=== PATIENT | male | born 1985 | race Caucasian/White ===

== ENCOUNTER 2016-08-28 06:33 | Day surgery (SDC) | payer BC ==
[~2016-08-28] VITALS: Ht 185.4 cm; Wt 95.0 kg
[~2016-08-28 06:33] MED LIST: CEFTIN250 MG PO; CLARITIN,ALAVAR10 MG PO; FLONASE16 G1 BOTH NARES; SINUS RINSE PR1 EACH BOTH NARES; TYLENOL WITH C1 EACH PO
[2016-08-28 07:00] VITALS: BP 131/86
[2016-08-28 13:10] VITALS: BP 123/82
[2016-08-28 14:22] VITALS: BP 127/78
[2016-08-28 14:35] VITALS: BP 127/78
== END 2016-08-28 14:35 | disposition home or self-care (01) ==
LOC: SDC 06:33
DX: J34.2 Deviated nasal septum (principal); J31.0 Chronic rhinitis; F17.200 Nicotine dependence, unspecified, uncomplicated; Z91.030 Bee allergy status
CPT/HCPCS: J0131; J0690; J1100; J1885; J2250; J2405; J2765; J3010; J3301; J7050

== ENCOUNTER 2017-07-11 20:12 | Emergency (ER) | payer BC ==
[~2017-07-11] VITALS: Ht 198.1 cm; Wt 95.4 kg
[2017-07-11 21:22] LABS: HEMATOCRIT 46.2 % (38.0-50.0); HEMOGLOBIN 16.3 G/DL (12.5-16.6); MCH 32.2 PG (29.0-34.0); MCHC 35.3 G/DL (30.0-36.0); MCV 91.3 FL (86-99); PLATELET COUNT 245 K/uL (156-360); RBC DIS.WIDTH-CV 12.4 % (11.8-14.6); RBC DIS.WIDTH-SD 41.1 % (39-53); RED BLOOD COUNT 5.06 M/uL (4.00-5.50)
[2017-07-11 21:32] LABS: ALBUMIN 4.9 g/dL (3.2-4.8)
[2017-07-11 21:33] LABS: CHLORIDE 106 mEq/L (99-109); POTASSIUM 3.7 mEq/L (3.7-5.4); SODIUM 142 mEq/L (136-147)
[2017-07-11 21:35] LABS: GLUCOSE 85 mg/dL (70-99)
[2017-07-11 21:37] LABS: TOTAL BILIRUBIN 0.5 mg/dL (0.0-1.0)
[2017-07-11 21:38] LABS: ALKALINE PHOSPHATASE 85 IU/L (3-129); SERUM ETHYL ALCOHOL 301 mg/dL
[2017-07-11 21:39] LABS: CREATININE 1.1 mg/dL (0.6-1.3); GFR ESTIMATE (CALCULATED) > 59 mL/min/ (58.99-99999)
[2017-07-11 21:40] LABS: AST (GOT) 33 IU/L (2-34); UREA NITROGEN (BUN) 11 mg/dL (9-23)
[2017-07-11 21:42] LABS: ALT (GPT) 26 IU/L (3-49)
[2017-07-12 05:45] VITALS: BP 110/50
== END 2017-07-12 05:46 | disposition home or self-care (01) ==
LOC: EME 20:12
PROVIDERS: Emergency Medicine
DX: F10.129 Alcohol abuse with intoxication, unspecified (principal); F32.9 Major depressive disorder, single episode, unspecified; R45.851 Suicidal ideations; Z78.1 Physical restraint status; F41.9 Anxiety disorder, unspecified; F17.200 Nicotine dependence, unspecified, uncomplicated
CPT/HCPCS: 80053; 81003; 85027; 90837; 99281; 99285; G0480; J1630; J2060